=== PATIENT | female | born 1980 | race African-American/Black ===

== ENCOUNTER 2022-09-04 22:02 | Emergency (ER) | payer OTHER ==
[~2022-09-04] VITALS: Ht 170.2 cm; Wt 72.6 kg
[2022-09-04] MEDS ORDERED: AMOX TR-K CLV1 EAC2 PO (23:42)
[2022-09-04] MEDS ORDERED: PROVENTIL HFA6.7 GM INH (23:43)
[2022-09-04] MEDS ORDERED: PREDNISONE20 MG PO (23:45)
== END 2022-09-05 00:36 | disposition home or self-care (01) ==
LOC: FSED 22:15
DX: R05.9 Cough, unspecified (principal); J45.901 Unspecified asthma with (acute) exacerbation; J01.90 Acute sinusitis, unspecified; R07.89 Other chest pain; M54.12 Radiculopathy, cervical region
CPT/HCPCS: 99282

== ENCOUNTER 2025-03-25 10:09 | Emergency (ER) | payer BC, OTHER ==
[~2025-03-25] VITALS: Ht 167.6 cm; Wt 65.8 kg
[~2025-03-25 10:09] MED LIST: AMOX TR-K CLV1 EAC2 PO; AZITHROMYCIN250 MG PO; BUSPIRONE HCL5 MG PO; CYCLOBENZAPRINE5 MG PO; DIPHENHYDRAMINE25 MG PO; IBUPROFEN200 MG PO; MELOXICAM7.5 MG PO; METHOCARBAMOL500 MG PO; NAPROSYN500 MG PO; PREDNISONE20 MG PO; PROVENTIL HFA6.7 GM INH; TAMIFLU75 MG PO; VENTOLIN HFA18 GM INH
[2025-03-25] MEDS ORDERED: TETANUS/DIPHTHERIA TOX ADULT 0.5 ML SYR IM STA (10:16)
[2025-03-25] MEDS ORDERED: BACITRACIN ZINC 0.9GM TP ONE (10:30)
[2025-03-25 11:04] VITALS: TEMP 97.4
[2025-03-25] MEDS: ONDANSETRON HCL INJ 2MG/ML 2ML 2 MG/ML VIAL IV ONE (11:44)
[2025-03-25] MEDS: FAMOTIDINE 20 MG/2 ML VIAL IV ONE (11:44)
[2025-03-25] MEDS: KETOROLAC TROMETHAMINE 30 MG/ML VIAL IV STA (11:44)
[2025-03-25] MEDS: DIPHENHYDRAMINE HCL INJ 50 MG/ML VIAL IV ONE (11:44)
[2025-03-25] MEDS: LACTATED RINGER'S 1,000 ML IV ONE (11:45)
[2025-03-25] MEDS ORDERED: MAALOX MAXIMUM355 ML PO (12:10)
[2025-03-25] MEDS ORDERED: FAMOTIDINE20 MG PO (12:10)
[2025-03-25] MEDS ORDERED: DIPHENHYDRAMINE25 M2 PO (12:10)
[2025-03-25] MEDS ORDERED: ONDANSETRON ODT4 MG PO (12:10)
[2025-03-25 12:25] VITALS: PULSE 63; RESP 22
[2025-03-25 12:34] VITALS: BP 133/68; PULSE 63; RESP 22; O2SAT 100
== END 2025-03-25 12:36 | disposition home or self-care (01) ==
LOC: FSED 10:16
DX: R11.2 Nausea with vomiting, unspecified (principal); A05.9 Bacterial foodborne intoxication, unspecified; R53.81 Other malaise; J45.909 Unspecified asthma, uncomplicated
CPT/HCPCS: 80048; 80076; 81003; 81025; 85025; 99283; J1200; J1308; J1885; J2405; J7121